=== PATIENT | male | born 1990 | race Caucasian/White ===

== ENCOUNTER 2022-02-28 11:48 | Inpatient (IN) | payer OTHER ==
[~2022-02-28] VITALS: Ht 190.5 cm; Wt 179.2 kg
[2022-02-28 11:57] VITALS: BP_SYST 149
[2022-02-28] MEDS ORDERED: ASPIRIN 81 MG TAB.CHEW PO ONE (12:00)
[2022-02-28] MEDS ORDERED: fentaNYL CITRATE/PF 100 MCG/2 ML AMP IVP ONE (12:00)
[2022-02-28] MEDS ORDERED: NACL 0.9% 1,000 ML IV ONE (12:00)
[2022-02-28 12:19] LABS: BASOPHILS # (AUTO) 0.1 K/uL (0.0-0.2); BASOPHILS % (AUTO) 0.6 % (0.0-2.0); EOSINOPHILS # (AUTO) 1.1 K/uL (0.0-0.4); EOSINOPHILS % (AUTO) 11.5 % (0.0-4.0); HEMATOCRIT 41.2 % (36-54); LYMPHOCYTES # (AUTO) 1.6 K/uL (1.0-5.5); LYMPHOCYTES % (AUTO) 16.1 % (20.5-51.5); MEAN CORPUSCULAR HEMOGLOBIN 32 pg (27-31); MEAN CORPUSCULAR HGB CONC 34 % (32-36); MEAN CORPUSCULAR VOLUME 93 fL (79.0-98.0); MONOCYTES # (AUTO) 0.7 K/uL (0.0-1.0); NEUTROPHILS # (AUTO) 6.4 K/uL (1.8-7.7); NEUTROPHILS % (AUTO) 64.8 % (40.0-70.0); PLATELET COUNT (AUTO) 266 K/uL (130-430); RED BLOOD CELL COUNT(AUTO) 4.43 MIL/uL (4.2-6.2); RED CELL DISTRIBUTION WIDTH 13.5 % (9.0-15.0); WHITE BLOOD COUNT (AUTO) 9.9 K/uL (4.8-10.8)
[2022-02-28] MEDS ORDERED: IOHEXOL 350 mgI/mL, 150 ML INFUS..BTL IV ONE (12:27)
[2022-02-28 12:35] LABS: ALANINE AMINOTRANSFERASE 36 U/L (12-78); ANION GAP 8 (5-15); ASPARTATE AMINOTRANSFERASE 20 U/L (10-37); CALCIUM 8.7 mg/dL (8.4-11.0); CHLORIDE 104 mmol/L (98-107); CREATININE 1.04 mg/dL (0.55-1.30); GFR AFRICAN AMERICAN 106 mL/min (>90); GLUCOSE 106 mg/dL (70-99); POTASSIUM 3.8 mmol/L (3.5-5.1); SODIUM SERUM 140 mmol/L (136-145); TOTAL BILIRUBIN 1.1 mg/dL (0.0-1.0); UREA NITROGEN, BLOOD 13 mg/dL (8-21)
[2022-02-28 12:36] LABS: ALBUMIN 4.4 g/dL (3.4-4.8)
[2022-02-28] MEDS ORDERED: METHOCARBAMOL 1000 MG/10 ML VIAL IVP ONE (12:45)
[2022-02-28] MEDS ORDERED: MORPHINE 4 MG INJ. 4 MG/ML VIAL IVP ONE (13:45)
[2022-02-28] MEDS ORDERED: PROP80CA55 PO (13:46)
[2022-02-28] MEDS ORDERED: HYDROmorphone 2 MG/ML VIAL IVP PRN (14:45)
[2022-02-28] MEDS ORDERED: ACETAMINOPHEN 325 MG TABLET PO PRN (14:45)
[2022-02-28] MEDS ORDERED: ONDANSETRON HCL 4 MG/2 ML VIAL IVP PRN (14:45)
[2022-02-28] MEDS ORDERED: HYDROmorphone 1 MG/ML INJ. CARTRIDGE ONE (14:58)
[2022-02-28 17:03] VITALS: BP_SYST 149
[2022-02-28 17:11] VITALS: BP_SYST 132
[2022-02-28] MEDS: LIDOCAINE/PRILOCAINE 5 GM CREAM (EMLA) TP SCH (18:45)
[2022-02-28 20:00] VITALS: BP_SYST 136
[2022-02-28] MEDS: BACLOFEN 10 MG TABLET PO SCH ×2 (20:18→23:06)
[2022-02-28] MEDS: MORPHINE 2 MG/ML INJ. SYRINGE IVP PRN (20:19)
[2022-02-28] MEDS ORDERED: PROPRANOLOL HCL 80 MG (INDERAL LA 80MG) PO ONE (23:03)
[2022-02-28] MEDS: PROPRANOLOL HCL 80 MG (INDERAL LA 80MG) PO SCH (23:07)
[2022-03-01 00:19] VITALS: BP_SYST 144
[2022-03-01] MEDS: MORPHINE 2 MG/ML INJ. SYRINGE IVP PRN ×2 (04:45→16:10)
[2022-03-01 06:55] LABS: BASOPHILS % (AUTO) 0.6 % (0.0-2.0); EOSINOPHILS # (AUTO) 0.9 K/uL (0.0-0.4); EOSINOPHILS % (AUTO) 10.7 % (0.0-4.0); HEMATOCRIT 36.5 % (36-54); HEMOGLOBIN 12.5 g/dL (14.0-18.0); LYMPHOCYTES # (AUTO) 1.7 K/uL (1.0-5.5); LYMPHOCYTES % (AUTO) 21.2 % (20.5-51.5); MEAN CORPUSCULAR HEMOGLOBIN 32 pg (27-31); MEAN CORPUSCULAR HGB CONC 34 % (32-36); MEAN CORPUSCULAR VOLUME 93 fL (79.0-98.0); MONOCYTES # (AUTO) 0.6 K/uL (0.0-1.0); MONOCYTES % (AUTO) 7.1 % (1.7-9.3); NEUTROPHILS # (AUTO) 4.9 K/uL (1.8-7.7); NEUTROPHILS % (AUTO) 60.4 % (40.0-70.0); PLATELET COUNT (AUTO) 220 K/uL (130-430); RED BLOOD CELL COUNT(AUTO) 3.94 MIL/uL (4.2-6.2); RED CELL DISTRIBUTION WIDTH 13.4 % (9.0-15.0); WHITE BLOOD COUNT (AUTO) 8.1 K/uL (4.8-10.8)
[2022-03-01 07:45] LABS: CALCIUM 8.5 mg/dL (8.4-11.0); CREATININE 0.84 mg/dL (0.55-1.30); PHOSPHORUS 4.6 mg/dL (2.7-4.5); POTASSIUM 3.8 mmol/L (3.5-5.1)
[2022-03-01 08:00] VITALS: BP_SYST 141
[2022-03-01] MEDS: BACLOFEN 10 MG TABLET PO SCH ×3 (09:36→20:43)
[2022-03-01] MEDS: PROPRANOLOL HCL 80 MG (INDERAL LA 80MG) PO SCH (09:37)
[2022-03-01 13:00] VITALS: BP_SYST 142
[2022-03-01] MEDS: HYDROcodone/ACETAMIN 5-325 MG TAB (NORCO/ VICODIN) PO PRN ×2 (13:24→20:44)
[2022-03-01] MEDS: LIDOCAINE/PRILOCAINE 5 GM CREAM (EMLA) TP SCH (15:26)
[2022-03-01 17:00] VITALS: BP_SYST 143
[2022-03-01 20:00] VITALS: BP_SYST 144
[2022-03-02] VITALS: BP_SYST 131
[2022-03-02 06:49] LABS: BASOPHILS # (AUTO) 0.1 K/uL (0.0-0.2); BASOPHILS % (AUTO) 0.6 % (0.0-2.0); EOSINOPHILS # (AUTO) 1.1 K/uL (0.0-0.4); EOSINOPHILS % (AUTO) 10.8 % (0.0-4.0); HEMATOCRIT 39.2 % (36-54); HEMOGLOBIN 13.3 g/dL (14.0-18.0); LYMPHOCYTES % (AUTO) 18.9 % (20.5-51.5); MEAN CORPUSCULAR HEMOGLOBIN 31 pg (27-31); MEAN CORPUSCULAR HGB CONC 34 % (32-36); MEAN CORPUSCULAR VOLUME 93 fL (79.0-98.0); MONOCYTES # (AUTO) 0.9 K/uL (0.0-1.0); MONOCYTES % (AUTO) 8.4 % (1.7-9.3); NEUTROPHILS # (AUTO) 6.4 K/uL (1.8-7.7); NEUTROPHILS % (AUTO) 61.3 % (40.0-70.0); PLATELET COUNT (AUTO) 216 K/uL (130-430); RED BLOOD CELL COUNT(AUTO) 4.24 MIL/uL (4.2-6.2); RED CELL DISTRIBUTION WIDTH 13.4 % (9.0-15.0); WHITE BLOOD COUNT (AUTO) 10.4 K/uL (4.8-10.8)
[2022-03-02 08:04] VITALS: BP_SYST 117
[2022-03-02 08:43] LABS: CALCIUM 8.8 mg/dL (8.4-11.0); CREATININE 0.94 mg/dL (0.55-1.30); PHOSPHORUS 5.2 mg/dL (2.7-4.5)
[2022-03-02] MEDS: BACLOFEN 10 MG TABLET PO SCH ×3 (09:17→22:07)
[2022-03-02] MEDS: HYDROcodone/ACETAMIN 5-325 MG TAB (NORCO/ VICODIN) PO PRN ×3 (09:27→22:07)
[2022-03-02] MEDS: PROPRANOLOL HCL 80 MG (INDERAL LA 80MG) PO SCH (10:00)
[2022-03-02] MEDS: LIDOCAINE/PRILOCAINE 5 GM CREAM (EMLA) TP SCH (10:54)
[2022-03-02 11:41] VITALS: BP_SYST 129
[2022-03-02] MEDS ORDERED: CYCL10TA24 PO (13:42)
[2022-03-02 16:00] VITALS: BP_SYST 130
[2022-03-02 21:00] VITALS: BP_SYST 133
[2022-03-03 00:38] VITALS: BP_SYST 135
[2022-03-03 08:00] VITALS: BP_SYST 127
[2022-03-03] MEDS: PROPRANOLOL HCL 80 MG (INDERAL LA 80MG) PO SCH (08:56)
[2022-03-03] MEDS: BACLOFEN 10 MG TABLET PO SCH ×2 (08:56→14:52)
[2022-03-03] MEDS: LIDOCAINE/PRILOCAINE 5 GM CREAM (EMLA) TP SCH (08:58)
[2022-03-03 10:00] VITALS: BP_SYST 127
[2022-03-03 11:30] VITALS: BP_SYST 132
[2022-03-03 13:22] VITALS: BP_SYST 133
[2022-03-03 15:21] VITALS: BP_SYST 133
== END 2022-03-03 18:45 | disposition home health service (06) | DRG 552 ==
LOC: SED 11:48 → STU 14:32 → SMU 03-02 23:28
PROVIDERS: ADMIT Student in an Organized Health Care Education/Training Program; ATTEND Student in an Organized Health Care Education/Training Program
PROC: 5A09357 Assistance with Respiratory Ventilation, Less than 24 Consecutive Hours, Continuous Positive Airway Pressure (ICD-10-PCS; principal; 2022-02-28)
PROC: 5A09457 Assistance with Respiratory Ventilation, 24-96 Consecutive Hours, Continuous Positive Airway Pressure (ICD-10-PCS; 2022-03-02)
DX: M62.830 Muscle spasm of back (principal); Z68.42 Body mass index [BMI] 45.0-49.9, adult; I10 Essential (primary) hypertension; F41.9 Anxiety disorder, unspecified; Z20.822 Contact with and (suspected) exposure to COVID-19; E66.01 Morbid (severe) obesity due to excess calories; Z79.899 Other long term (current) drug therapy; Z82.49 Family history of ischemic heart disease and other diseases of the circulatory system
CPT/HCPCS: 36415; 71045; 71275; 72128; 72191; 74175; 76376; 80048; 80053; 82962; 83735; 83880; 84100; 84484; 85025; 86886; 86900; 86901; 94660; 96361; 96374; 96375; 97112-GP; 97116-GP; 97530-GP; 99291; G0378; J1170; J2270; J2800; J3010; Q9967

== ENCOUNTER 2022-08-09 00:02 | Inpatient (IN) | payer OTHER ==
[~2022-08-09] VITALS: Ht 190.5 cm; Wt 177.4 kg
[2022-08-09] VITALS (7 sets, daily range): BP systolic 128–137
[~2022-08-09 00:02] MED LIST: CYCL10TA24 PO; PROP80CA55 PO
[2022-08-09 01:15] LABS: ANION GAP 6 (5-15); CALCIUM 9.4 mg/dL (8.4-11.0); CHLORIDE 103 mmol/L (98-107); CREATININE 0.98 mg/dL (0.55-1.30); GLUCOSE 91 mg/dL (70-99); POTASSIUM 3.9 mmol/L (3.5-5.1); UREA NITROGEN, BLOOD 21 mg/dL (8-21)
[2022-08-09 01:20] LABS: RED CELL DISTRIBUTION WIDTH 13.5 % (9.0-15.0)
[2022-08-09 01:21] LABS: ALANINE AMINOTRANSFERASE 38 U/L (12-78); ALBUMIN 4.1 g/dL (3.4-4.8); ASPARTATE AMINOTRANSFERASE 25 U/L (10-37); TOTAL BILIRUBIN 0.6 mg/dL (0.0-1.0)
[2022-08-09 01:24] LABS: BASOPHILS # (AUTO) 0.1 K/uL (0.0-0.2); BASOPHILS % (AUTO) 1.1 % (0.0-2.0); EOSINOPHILS # (AUTO) 1.3 K/uL (0.0-0.4); EOSINOPHILS % (AUTO) 11.8 % (0.0-4.0); HEMATOCRIT 38.4 % (36-54); LYMPHOCYTES # (AUTO) 2.5 K/uL (1.0-5.5); LYMPHOCYTES % (AUTO) 22.3 % (20.5-51.5); MEAN CORPUSCULAR VOLUME 95 fL (79.0-98.0); MONOCYTES # (AUTO) 0.7 K/uL (0.0-1.0); MONOCYTES % (AUTO) 6.6 % (1.7-9.3); NEUTROPHILS # (AUTO) 6.6 K/uL (1.8-7.7); NEUTROPHILS % (AUTO) 58.2 % (40.0-70.0); PLATELET COUNT (AUTO) 261 K/uL (130-430); RED BLOOD CELL COUNT(AUTO) 4.06 MIL/uL (4.2-6.2); WHITE BLOOD COUNT (AUTO) 11.3 K/uL (4.8-10.8)
[2022-08-09 01:49] LABS: GFR AFRICAN AMERICAN 114 mL/min (>90)
[2022-08-09] MEDS ORDERED: DOCUSATE SODIUM 100 MG CAPSULE PO PRN (08:15)
[2022-08-09] MEDS ORDERED: ONDANSETRON HCL 4 MG/2 ML VIAL IVP PRN (08:15)
[2022-08-09] MEDS ORDERED: POTASSIUM CHLORIDE 20 MEQ TAB.PRT.SR PO PRN (08:15)
[2022-08-09] MEDS ORDERED: MAGNESIUM SULFATE 50 ML IV PRN (08:15)
[2022-08-09] MEDS ORDERED: ACETAMINOPHEN 325 MG TABLET PO PRN ×2 (08:15→09:45)
[2022-08-09] MEDS ORDERED: MUPIROCIN 2% TOPICAL OINTMENT 22 GM NS PRN (08:15)
[2022-08-09] MEDS ORDERED: MORPHINE 2 MG/ML INJ. SYRINGE IVP PRN ×2 (08:15)
[2022-08-09] MEDS ORDERED: PROPRANOLOL HCL (INDERAL LA 60MG) PO SCH (09:00)
[2022-08-09] MEDS: ASPIRIN 81 MG TAB.CHEW PO SCH (10:15)
[2022-08-09] MEDS ORDERED: PROPRANOLOL HCL 10 MG TABLET (INDERAL) PO ONE (11:00)
[2022-08-09 17:50] LABS: CHOLESTEROL 165 mg/dL (<200); HDL CHOLESTEROL 45 mg/dL (>45); LDL CHOLESTEROL 105 mg/dL (<100); TRIGLYCERIDES 157 mg/dL (30-150)
[2022-08-09] MEDS: PROPRANOLOL HCL 10 MG TABLET (INDERAL) PO SCH (22:09)
[2022-08-10] VITALS: BP_SYST 127
[2022-08-10 07:34] LABS: BASOPHILS # (AUTO) 0.1 K/uL (0.0-0.2); EOSINOPHILS # (AUTO) 1.3 K/uL (0.0-0.4); EOSINOPHILS % (AUTO) 14.1 % (0.0-4.0); HEMATOCRIT 36.9 % (36-54); LYMPHOCYTES # (AUTO) 2.3 K/uL (1.0-5.5); LYMPHOCYTES % (AUTO) 25.6 % (20.5-51.5); MEAN CORPUSCULAR VOLUME 93 fL (79.0-98.0); MONOCYTES # (AUTO) 0.6 K/uL (0.0-1.0); MONOCYTES % (AUTO) 6.9 % (1.7-9.3); NEUTROPHILS # (AUTO) 4.7 K/uL (1.8-7.7); NEUTROPHILS % (AUTO) 52.4 % (40.0-70.0); PLATELET COUNT (AUTO) 205 K/uL (130-430); RED BLOOD CELL COUNT(AUTO) 3.96 MIL/uL (4.2-6.2); RED CELL DISTRIBUTION WIDTH 13.4 % (9.0-15.0)
[2022-08-10 07:35] LABS: CALCIUM 8.8 mg/dL (8.4-11.0); CREATININE 0.96 mg/dL (0.55-1.30); POTASSIUM 3.9 mmol/L (3.5-5.1)
[2022-08-10 08:00] VITALS: BP_SYST 162
[2022-08-10] MEDS ORDERED: PROP10TA10 PO (08:37)
[2022-08-10] MEDS: ASPIRIN 81 MG TAB.CHEW PO SCH (08:56)
[2022-08-10] MEDS: PROPRANOLOL HCL 10 MG TABLET (INDERAL) PO SCH (08:57)
[2022-08-10 09:16] VITALS: BP_SYST 135
== END 2022-08-10 18:06 | disposition home or self-care (01) | DRG 313 ==
LOC: SED 00:02 → STU 03:42
PROVIDERS: ADMIT Family Medicine; ATTEND Family Medicine
PROC: 5A09357 Assistance with Respiratory Ventilation, Less than 24 Consecutive Hours, Continuous Positive Airway Pressure (ICD-10-PCS; principal; 2022-08-09)
DX: R07.89 Other chest pain (principal); Z68.42 Body mass index [BMI] 45.0-49.9, adult; I10 Essential (primary) hypertension; E66.01 Morbid (severe) obesity due to excess calories; F41.0 Panic disorder [episodic paroxysmal anxiety]; G47.33 Obstructive sleep apnea (adult) (pediatric); F41.1 Generalized anxiety disorder; M54.9 Dorsalgia, unspecified; G89.29 Other chronic pain; R00.1 Bradycardia, unspecified; T44.7X5A Adverse effect of beta-adrenoreceptor antagonists, initial encounter; Z88.0 Allergy status to penicillin; Z79.899 Other long term (current) drug therapy; Y92.89 Other specified places as the place of occurrence of the external cause
CPT/HCPCS: 36415; 71045; 80048; 80053; 80061; 83735; 83880; 84484; 85025; 85379; 93005; 93306; 93970; 94660; 94760; 99285; G0378

== ENCOUNTER 2022-08-14 12:42 | Emergency (ER) | payer OTHER ==
[~2022-08-14] VITALS: Ht 190.5 cm; Wt 172.4 kg
[~2022-08-14 12:42] MED LIST changes: +PROP10TA10 PO; -PROP80CA55 PO
[2022-08-14 12:56] VITALS: BP_SYST 132
== END 2022-08-14 13:00 | disposition left against medical advice (07) ==
LOC: SED 12:42
DX: L02.31 Cutaneous abscess of buttock (principal); Z53.21 Procedure and treatment not carried out due to patient leaving prior to being seen by health care provider

== ENCOUNTER 2023-09-22 11:37 | Emergency (ER) | payer OTHER ==
[~2023-09-22] VITALS: Ht 190.5 cm; Wt 172.4 kg
[2023-09-22 11:44] VITALS: BP_SYST 133; PULSE 79; RESP 18; TEMP 97.4; O2SAT 97
[2023-09-22] MEDS ORDERED: predniSONE 20 MG TABLET PO ONE (14:15)
[2023-09-22] MEDS ORDERED: KETOROLAC TROMETHAMINE 60 MG/2 ML VIAL IM ONE (14:15)
[2023-09-22] MEDS ORDERED: HYDROcodone/ACETAMIN 10-325 MG TAB PO ONE (14:15)
[2023-09-22] MEDS ORDERED: HYDROcodone/ACETAMIN 5-325 MG TAB (NORCO/ VICODIN) ONE (14:23)
[2023-09-22] MEDS ORDERED: HYDROcodone/ACETAMIN 5-325 MG TAB (NORCO/ VICODIN) PO ONE (14:30)
[2023-09-22] MEDS ORDERED: CYCL10TA24 PO (17:02)
[2023-09-22] MEDS ORDERED: IBUP-1971 PO (17:02)
[2023-09-22 17:24] VITALS: BP_SYST 143; PULSE 71; RESP 20; TEMP 97.3; O2SAT 93
== END 2023-09-22 17:22 | disposition home or self-care (01) ==
LOC: SED 11:37
DX: G89.29 Other chronic pain (principal); M54.50 Low back pain, unspecified; I10 Essential (primary) hypertension; Z91.041 Radiographic dye allergy status; Z79.899 Other long term (current) drug therapy
CPT/HCPCS: 99285; 72131; 76376; 96372; J7512; J1885